=== PATIENT | female | born 1955 | race Caucasian/White ===

== ENCOUNTER 2022-11-14 11:37 | Outpatient (REF) | payer MEDICARE, SELFPAY ==
[2022-11-14 13:45] LABS: MANUAL DIFF FLAG NO
[2022-11-14 13:54] LABS: Basophils Percent Auto 0.5 % (0-2); Eosinophils Absolute Auto 0.1 X10*3/uL (0.0-0.4); Eosinophils Percent Auto 0.9 % (0-4); Hematocrit 43.5 % (37.0-47.0); Hemoglobin 14.3 g/dl (12.0-16.0); Imm Gran Abs Auto 0.02 X10*3/uL (0.00-0.03); Imm Gran Pct Auto 0.3 % (0.0-0.4); Lymphocytes Absolute Auto 1.7 X10*3/uL (1.2-4.9); Lymphocytes Percent Auto 26.9 % (20-40); Mean Corpuscular HGB Conc 32.9 g/dl (31.0-35.0); Mean Corpuscular Hemoglobin 29.2 pg (27.0-33.0); Mean Corpuscular Volume 88.8 fL (80.0-98.0); Monocytes Absolute Auto 0.5 X10*3/uL (0.1-1.2); Monocytes Percent Auto 8.4 % (2-11); Neutrophils Absolute Auto 4.1 x10*3/uL (2.0-8.3); Platelet Count 255 X10*3/uL (160-400); Red Cell Distribution Width 13.2 % (11.0-16.0); White Blood Count 6.5 X10*3/uL (4.8-10.8)
[2022-11-14 14:22] LABS: Alanine Aminotransferase 26 U/L (0-31); Albumin Level 4.6 g/dL (3.5-5.0); Alkaline Phosphatase 67 U/L (39-117); Anion Gap 14 (12-20); Aspartate Amino Transferase 24 U/L (5-31); Bilirubin Total 0.4 mg/dL (0.0-1.0); Blood Urea Nitrogen 19 mg/dL (9-16); Calcium 10.1 mg/dL (8.4-10.2); Carbon Dioxide 24 mmol/L (22-29); Chloride 107 mmol/L (96-108); Cholesterol 311 mg/dL; Estimated Glomerular Filt Rate > 60; Glucose Random 86 mg/dL (60-115); Sodium 141 mmol/L (135-145); Total Protein 6.9 g/dL (6.5-8.0)
[2022-11-14 14:40] LABS: Thyroid Stimulating Hormone 1.23 uIU/mL (0.32-4.0); Vitamin D 25-OH Total 17.3 ng/mL (>30)
== END 2022-11-14 11:38 | disposition home or self-care (01) ==
LOC: HO.10HDL 11:37
PROVIDERS: Visit Provider Internal Medicine
DX: Z00.00 Encounter for general adult medical examination without abnormal findings (principal)
CPT/HCPCS: 36415; 80053; 82306; 82465; 84443; 85025

== ENCOUNTER 2025-03-22 14:43 | Outpatient (AMB) | payer MEDICARE, SELFPAY ==
--- NOTE | 2025-03-22 14:13 | MHC.PC.OV ---
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 Required: No Accompanied by: Self / Same As Patient Allergies naproxen Allergy (Mild, Verified 03/22/25 14:15) Unknown Tobacco use date assessed: 03/22/25 Fall risk assessment: No Falls in past year Last assessed Fall Risk: 03/22/25 Dental Screening Dental Screen Date: 03/22/25 Did you have a dental visit in the last 12 months?: Yes Did you have a dental problem in the last 6 months where you did not have access to dental care?: No [facility] Medical History (Updated 03/22/25 @ 15:12 by Heath Campos MD) Chronic eczema of foot ADHD Family History (Updated 03/22/25 @ 14:51 by Janine Hancock MA) Mother No problems noted. Father No problems noted. Social History Housing: House Patient Tobacco Use Status: Former Tobacco user e-Cigarette/Vaping Use: Former Use service: No Current occupational status: retired Cognitive needs: No Hearing needs: No Vision needs: Yes (rx glasses) Questionnaire PHQ-9 Over the last 2 weeks, how often have you been bothered by any of the following problems? 1. Little interest or pleasure in doing things: not at all 2. Feeling down, depressed, or hopeless: not at all 3. Trouble falling or staying asleep, or sleeping too much: not at all 4. Feeling tired or having little energy: not at all 5. Poor appetite or overeating: not at all 6. Feeling bad about yourself - or that you are a failure or have let yourself or your family down: not at all 7. Trouble concentrating on things, such as reading the newspaper or watching television: not at all 8. Moving or speaking so slowly that other people could have noticed. Or the opposite - being so fidgety or restless that you have been moving around a lot more than usual: not at all 9. Thoughts that you would be better off or of hurting yourself in some way: not at all Total score: 0 Source: Developed by Drs. Darin Banegas, Shira Mitchell, Les Lovelace and colleagues, with an educational grover from [employer]. Thrive Questionnaire Date Thrive assessed: 03/22/25 I am a: Patient Within the past 12 months, did the food you bought not last and you didn't have the money to get more?: Never true Within the past 12 months, did you worry whether your food would run out before you got money to buy more?: Never true Do you have trouble paying for medicines?: No Do you have trouble getting transportation to medical appointments?: No Do you have trouble paying your heating and electricity bill?: No Do you have trouble taking care of your child, family member or friend?: No Do you have trouble with day-to-day activities such as bathing, preparing meals, shopping, managing finances, etc.?: No Are you currently unemployed and looking for a job?: No Are you interested in more education?: No THRIVE Score: 0 AUDIT C Alcohol Use Questionnaire (AUDIT-C) 1. How often do you have a drink containing alcohol?: Never 3. How often do you have six or more drinks on one occasion?: Never Total Score: 0 AZRA-7 AMB Questionnaire AZRA-7 Date AZRA - 7 assessed: 03/22/25 Feeling nervous, anxious, or on edge: 0 = Not at all Not being able to stop or control worryin = Not at all Worrying too much about different things: 0 = Not at all Trouble relaxin = Not at all Being so restless that it is hard to sit still: 0 = Not at all Becoming easily annoyed or irritable: 0 = Not at all Feeling afraid as if something awful might happen: 0 = Not at all Total AZRA-7 score (0-4 normal; 5-9 mild; 10-14 moderate; 15-21 severe): 0 Source: Developed by Drs. Darin Banegas, Les Dickerson and colleagues, with an educational grover from [employer]. Physical exam (Primary Care) Vital Signs: Last Vital Signs Temp 97.5 F 03/22/25 14:47 Pulse 88 03/22/25 14:47 BP 130/86 03/22/25 14:47 Pulse Ox 99 03/22/25 14:47 Oxygen Delivery Method Room Air 03/22/25 14:47 BMI result Body Mass Index 2.6 Tobacco/Smoking Status: Tobacco use Status Tobacco use date assessed 03/22/25 03/22/25 14:16 Patient Tobacco Use Status Former Tobacco user 03/22/25 14:51 e-Cigarette/Vaping Use Former Use 03/22/25 14:51 PHQ-9: PHQ-9 Score PHQ-9: Total score 0 03/22/25 14:51 Thrive Assessment: Date of Thrive Assessment Date Thrive assessed 03/22/25 03/22/25 14:51 Coding Level of Care Code New Pt Level 4 (22400) Complex EM visit Add On G2211 Diagnoses ADHD F90.9 Chronic eczema of foot L30.9 Assessment & Plan Assessment & Plan (1) ADHD: Code(s): F90.9 - Attention-deficit hyperactivity disorder, unspecified type Category: Medical Plan: Pt is apprehensive. Was not comfortable answering a few questions regarding her ability to do her ADL's. I am hesitant to continue prescribing the stimulants. Out patient psych has been requested. (2) Chronic eczema of foot: Code(s): L30.9 - Dermatitis, unspecified Category: Medical Plan: Condition appears chronic. Cannot tell the dermatology who she saw in the past. Dermatology consult requested. Plan History of Present Illness The patient is a 69-year-old female presenting with concerns regarding her chronic foot condition. She has had this condition for several years, and it has progressively worsened. The discomfort intensifies following prolonged exposure to water, such as during swimming, prompting the patient to cease this activity to avoid aggravation. The condition also causes significant sleep disturbances. Despite a lack of recent dermatological consultations, the patient expresses a strong interest in obtaining a referral to a gill box operator due to the worsening of her symptoms since her last consultation over ten years ago. The patient also reports a long-standing diagnosis of ADHD, for which she has been consistently medicated with amphetamine for approximately two decades. The medication has been effective in improving her ability to concentrate and engage in artistic activities. She has been in contact with various providers to manage her prescription, with Dr. Rivera being her most recent provider. Although the patient's ADHD treatment history is extensive, she has not had recent specialist evaluations. 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 - She lives alone. - The patient drives independently, including at night, without difficulty. Review of Systems - Musculoskeletal: Reports chronic foot discomfort exacerbated by prolonged exposure to water. - Neurological: Reports improved concentration with medication for ADHD; denies issues while driving or activities of daily living. - Sleep: Reports sleep disturbances related to chronic foot condition. Physical Exam General: Cooperative and healthy appearing Nutritional Appearance: Well nourished Orientation/consciousness: Patient oriented x3 Limitations: No limitations Head: Normal to inspection General: Appearance normal, both eyes and all related structures Neck: Normal visual inspection Chest: Normal palpation of entire chest wall Respiratory: No difficulty breathing, lungs are fine. ormal respiratory effort Neurology: Patient oriented x3, able to drive at night without issues, able to function and perform daily activities independently. Feet: Right : Thickened skin over the plantar surface with excoriation evans Results Plan 1. Chronic Foot Condition - Refer to a gill box operator for assessment and management. - Attempt to secure an appointment within the year. 2. Attention-Deficit/Hyperactivity Disorder Adhd - Continuation of current amphetamine therapy pending specialist confirmation. - Referral to a specialist for verification of prescription appropriateness. - Follow-up arranged post-specialist consultation. Discussion Notes During the visit, I discussed with the patient the necessity of addressing her chronic foot condition through a renewed referral to a gill box operator. Despite prior difficulties in obtaining timely appointments, I reassured her that I would assist in scheduling an expedited consultation. Regarding her ADHD management, the necessity of a specialist evaluation was emphasized to ensure the appropriateness of her current medication regimen. I explained my protocol for ADHD management, which involves periodic specialist reviews, before continuing long-term prescriptions. The patient was informed about the process of arranging this assessment and assured that it would not incur additional costs under her current insurance plan. For follow-up, I have scheduled a review in three months to assess the specialist's notes on her ADHD and make an informed decision regarding future prescriptions. The patient was made aware of these plans and the reasoning behind tightening medication oversight with the transition from her former provider, Dr. Rivera. Patient Instructions - Await referral letter for gill box operator appointment; I will expedite this. - Continue current ADHD medication regimen until specialist consultation can be arranged. - Undergo blood work as recommended. - Follow up in three months to review ADHD management. - Contact the clinic if symptoms worsen or if there are difficulties emission specialist visits. Orders: Orders Lipid Panel Today F90.9 - Attention-deficit hyperactivity disorder, unspecified type, L30.9 - Dermatitis, unspecified Liver Panel Today F90.9 - Attention-deficit hyperactivity disorder, unspecified type, L30.9 - Dermatitis, unspecified Thyroid Stimulating Hormone Today F90.9 - Attention-deficit hyperactivity disorder, unspecified type, L30.9 - Dermatitis, unspecified UA and rflx microscopic Today F90.9 - Attention-deficit hyperactivity disorder, unspecified type, L30.9 - Dermatitis, unspecified Basic Metabolic Panel Today F90.9 - Attention-deficit hyperactivity disorder, unspecified type, L30.9 - Dermatitis, unspecified Complete Blood Count no Diff Today F90.9 - Attention-deficit hyperactivity disorder, unspecified type, L30.9 - Dermatitis, unspecified Referrals Dermatology Referral F90.9 - Attention-deficit hyperactivity disorder, unspecified type, L30.9 - Dermatitis, unspecified Psychiatry Outpatient Consultation Service F90.9 - Attention-deficit hyperactivity disorder, unspecified type
[2025-03-22 14:47] VITALS: BP 130/86; PULSE 88; TEMP 36.4; O2SAT 99
== END 2025-03-22 15:17 | disposition home or self-care (01) ==
LOC: HO.HMCHD 14:44
PROVIDERS: PCP Internal Medicine; Visit Provider Internal Medicine
DX: F90.9 Attention-deficit hyperactivity disorder, unspecified type (principal); L30.9 Dermatitis, unspecified

== ENCOUNTER → 2025-03-22 14:43 | Outpatient (BNVA) | payer MEDICARE, SELFPAY | PROVIDERS: PCP Internal Medicine; Visit Provider Internal Medicine | DX: M79.671 Pain in right foot (principal); F90.9 Attention-deficit hyperactivity disorder, unspecified type; L30.9 Dermatitis, unspecified; Z79.899 Other long term (current) drug therapy | CPT/HCPCS: 96127; 99202 ==

== ENCOUNTER 2025-04-14 07:56 | Outpatient (REF) | payer MEDICARE, SELFPAY ==
[2025-04-14 08:22] LABS: Appearance Urine Hazy; Color Urine Yellow; Glucose Urine UA Negative (Negative); Leukocyte Esterase Urine Moderate (2+) (Negative); Nitrite Urine Negative (Negative); Specific Gravity - Urine >= 1.030 (1.005-1.025); UMIC TRIGGER UA YES; Urine Blood Negative (Negative); Urine Ketones Negative (Negative); Urine Protein Negative (Neg-Trace)
[2025-04-14 08:32] LABS: Hematocrit 41.2 % (37.0-47.0); Hemoglobin 14.1 g/dl (12.0-16.0); Mean Corpuscular HGB Conc 34.2 g/dl (31.0-35.0); Mean Corpuscular Hemoglobin 30.8 pg (27.0-33.0); Mean Platelet Volume 9.6 fL (9.4-12.3); Platelet Count 229 X10*3/uL (160-400); Red Blood Count 4.58 X10*6/uL (4.20-5.50); Red Cell Distribution Width 14.6 % (11.0-16.0)
[2025-04-14 08:38] LABS: Bacteria Urine 4+ (None Seen); Hyaline Casts Urine 0-2 /LPF (0-2); RBC Urine 0-2 /HPF (0-2); Squamous Epithelial Cell Urine >20 /HPF (0-2); WBC Urine >50 /HPF (0-5)
[2025-04-14 09:16] LABS: Alanine Aminotransferase 28 U/L (0-31); Albumin Level 4.5 g/dL (3.5-5.0); Alkaline Phosphatase 69 U/L (39-117); Anion Gap 13 (12-20); Aspartate Amino Transferase 30 U/L (5-31); Bilirubin Direct 0.1 mg/dL (0.0-0.5); Bilirubin Total 0.3 mg/dL (0.0-1.0); Blood Urea Nitrogen 15 mg/dL (9-16); Carbon Dioxide 26 mmol/L (22-29); Chloride 110 mmol/L (96-108); Cholesterol 311 mg/dL (<200); Estimated Glomerular Filt Rate > 60; Glucose Random 77 mg/dL (60-115); HDL Cholesterol 79 mg/dL (>40); LDL Cholesterol Calculated 186 mg/dL (<100); Potassium 4.3 mmol/L (3.3-5.1); Sodium 145 mmol/L (135-145); Triglycerides 234 mg/dL (<150)
[2025-04-14 09:32] LABS: Thyroid Stimulating Hormone 1.22 uIU/mL (0.32-4.0)
== END 2025-04-14 07:57 | disposition home or self-care (01) ==
LOC: HO.LAB 07:56
PROVIDERS: PCP Internal Medicine; Visit Provider Internal Medicine
DX: F90.9 Attention-deficit hyperactivity disorder, unspecified type (principal); L30.9 Dermatitis, unspecified
CPT/HCPCS: 36415; 80048; 80061; 80076; 81001; 84443; 85027

== ENCOUNTER 2025-04-17 14:01 | Outpatient (AMB) | payer MEDICARE, SELFPAY ==
[2025-04-17 14:18] VITALS: PULSE 103; TEMP 36.2; O2SAT 97; BMI 26.0
--- NOTE | 2025-04-17 14:18 | A.OFFPC_ITS ---
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 Father No problems noted. Social History Housing: House Patient Tobacco Use Status: Former Tobacco user e-Cigarette/Vaping Use: Former Use service: No Current occupational status: retired Cognitive needs: No Hearing needs: No Vision needs: Yes (rx glasses) Questionnaire PHQ-9 Over the last 2 weeks, how often have you been bothered by any of the following problems? 1. Little interest or pleasure in doing things: not at all 2. Feeling down, depressed, or hopeless: nearly every day 3. Trouble falling or staying asleep, or sleeping too much: not at all 4. Feeling tired or having little energy: not at all 5. Poor appetite or overeating: not at all 6. Feeling bad about yourself - or that you are a failure or have let yourself or your family down: not at all 7. Trouble concentrating on things, such as reading the newspaper or watching television: not at all 8. Moving or speaking so slowly that other people could have noticed. Or the opposite - being so fidgety or restless that you have been moving around a lot more than usual: not at all 9. Thoughts that you would be better off or of hurting yourself in some way: not at all Total score: 3 Source: Developed by Drs. Darin Banegas, Shira Mitchell, Les Lovelace and colleagues, with an educational grover from [employer]. Thrive Questionnaire Date Thrive assessed: 03/22/25 I am a: Patient Within the past 12 months, did the food you bought not last and you didn't have the money to get more?: Never true Within the past 12 months, did you worry whether your food would run out before you got money to buy more?: Never true Do you have trouble paying for medicines?: No Do you have trouble getting transportation to medical appointments?: No Do you have trouble paying your heating and electricity bill?: No Do you have trouble taking care of your child, family member or friend?: No Do you have trouble with day-to-day activities such as bathing, preparing meals, shopping, managing finances, etc.?: No Are you currently unemployed and looking for a job?: No Are you interested in more education?: No THRIVE Score: 0 AUDIT C Alcohol Use Questionnaire (AUDIT-C) 1. How often do you have a drink containing alcohol?: Never 3. How often do you have six or more drinks on one occasion?: Never Total Score: 0 AZRA-7 AMB Questionnaire AZRA-7 Date AZRA - 7 assessed: 04/17/25 Feeling nervous, anxious, or on edge: 3 = Nearly every day Not being able to stop or control worryin = Not at all Worrying too much about different things: 0 = Not at all Trouble relaxin = Not at all Source: Developed by Drs. Darin Banegas, Shira Mitchell, Les Lovelace and colleagues, with an educational grover from [employer]. Physical exam (Primary Care) Vital Signs: Last Vital Signs Temp 97.2 F 04/17/25 14:18 Pulse 103 H 04/17/25 14:18 Pulse Ox 97 04/17/25 14:18 Oxygen Delivery Method Room Air 04/17/25 14:18 BMI result Body Mass Index 26.0 Tobacco/Smoking Status: Tobacco use Status Tobacco use date assessed 04/17/25 04/17/25 14:23 Patient Tobacco Use Status Former Tobacco user 04/17/25 14:23 e-Cigarette/Vaping Use Former Use 04/17/25 14:23 PHQ-9: PHQ-9 Score PHQ-9: Total score 3 04/17/25 14:46 Thrive Assessment: Date of Thrive Assessment Date Thrive assessed 03/22/25 04/17/25 14:23 Coding Level of Care Code Est Pt Level 3 (06120) Complex EM visit Add On G2211 Diagnoses ADHD F90.9 Assessment & Plan Assessment & Plan (1) ADHD: Code(s): F90.9 - Attention-deficit hyperactivity disorder, unspecified type Category: Medical Plan: Difficult conversation with patient. She was upset that there was miscommunication regarding her labs, psych evaluation. This was discussed in the last OV. I apologized. Her BW shows elevated chol, she has no interest in taking statins. Informed her that Psyc has been called again for an early appt. Her adderal dosage has been reduced to twice a day. She also wanted a dermatology appt for the lesion on the plantar surface of her feet. I offered her steroid creams and she declined. Apart from examining the feet visually, no PE was done
== END 2025-04-17 15:26 | disposition home or self-care (01) ==
LOC: HO.HMCHD 14:01
PROVIDERS: PCP Internal Medicine; Visit Provider Internal Medicine
DX: F90.9 Attention-deficit hyperactivity disorder, unspecified type (principal)

== ENCOUNTER → 2025-04-17 14:01 | Outpatient (BNVA) | payer MEDICARE, SELFPAY | PROVIDERS: PCP Internal Medicine; Visit Provider Internal Medicine | DX: F90.9 Attention-deficit hyperactivity disorder, unspecified type (principal); Z13.30 Encounter for screening examination for mental health and behavioral disorders, unspecified | CPT/HCPCS: 96127; 99212 ==

== ENCOUNTER 2025-04-27 15:17 | Outpatient (AMB) | payer MEDICARE, SELFPAY ==
--- NOTE | 2025-04-27 14:51 | A.OFFPSYCH_ITS ---
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 Pt arrived at the office and was irritable and guarded. She refused to fill out a PHQ9 or GAD7 papaerwork and its not clear why- may be due to high stress she felt coming here, her eye sight hand pain, or ADHD or all of the above. 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 She has struggled since then. 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 She also has macular degeneration and feels her eye health is worsening which is very stressful for patient. She reports psoriasis on her feet and it hurts every day. The pain can sometimes keep her awake. She reports a long history of ADHD and unable to function well without adderall. She reports she sleeps 8 hours but often has worry/anxiety dreams. She was diagnosed with ADHD 20 years ago and has been on adderall 10mg TID for most of those 20 years with good effect. Past Psychiatric History: No IPLOC. no hx of self harm. Has had bouts of depression in past but hs tried antidepressants and made her feel worse; she reports she always felt they were toxic. Subjective Subjective Subjective Medication Compliance: Yes Side effects from medications: No Review of Systems Medical Review of Systems: unchanged Mental Status Exam Mental Status Exam Patient Appearance: Appropriate Patient Orientation: Person, Place, Time and Situation Level of Consciousness: Awake and Alert Patient Behavior: Guarded, Cooperative, Restless, Anxious, Good Eye Contact and Uncooperative (initially irritable ) Behavior Comments: high level of hypearousal initially- less so over course of appt Mood Description: Anxious, Angry, Nervous and Apprehensive Affect Description: Anxious, Nervous and Apprehensive Patient Cognition Impaired: No Ability to Follow Directions: Good Speech Pattern: Clear Memory Description: Intact Hallucinations: None Delusions: Not Present Thought Process: Intact, Rumination and Goal Oriented Thought Content: positive for Intact and positive for Goal Oriented Judgement: Good Assessment and Plan Assessment & Plan (1) ADHD: Status: Acute Qualifiers: Attention deficit-hyperactivity disorder type: combined inattentive- hyperactive Qualified Code(s): F90.2 - Attention-deficit hyperactivity disorder, combined type Code(s): F90.9 - Attention-deficit hyperactivity disorder, unspecified type (2) Vitamin D deficiency: Status: Acute Code(s): E55.9 - Vitamin D deficiency, unspecified (3) Dupuytren's contracture of right hand: Status: Acute Code(s): M72.0 - Palmar fascial fibromatosis [Dupuytren] Plan labs ordereed ekg ordered adderall 10 mg TID Medications: Changed From dextroamphetamine-amphetamine 10 mg (Adderall) administer doses at least 4-6 hours apart 10 mg PO BID 60 tabs 0RF To dextroamphetamine-amphetamine 10 mg (Adderall) administer doses at least 4-6 hours apart 10 mg PO TID 90 tabs 0RF Orders: Orders Vitamin D 25-OH Total 04/27/25 E55.9 - Vitamin D deficiency, unspecified Ferritin 04/27/25 F90.9 - Attention-deficit hyperactivity disorder, unspecified type IRON PROFILE 04/27/25 F90.9 - Attention-deficit hyperactivity disorder, unspecified type Transferrin 04/27/25 F90.9 - Attention-deficit hyperactivity disorder, unspecified type ECG 12 lead EKG 04/27/25 F90.9 - Attention-deficit hyperactivity disorder, unspecified type Counseling and coordination of Care Pt. Self Management counseling: Maintenance-social rhythm, Mod caffeine/ETOH intake, Nutrition education and improvement and Problem solving Medication management counseling: Effectiveness, Side effects, Dosing range, Duration, Drug interaction and Adherence Diagnosis and Prognosis Counseling: Accuracy of diagnosis, Prognosis over time, Impact of diagnosis on life functions and Adequacy of current interventions Details: I spent 75 minutes reviewing the record, seeing the patient and documenting in the medical record. Counseling provided to the patient/caregiver as outlined below. Addressed patient/caregiver concerns regarding current medication regime including effective adherence. Addressed patient/caregiver concerns regarding diagnosis and prognosis including accuracy of diagnosis, prognosis over time, impact of diagnosis. Addressed patient/caregiver concerns regarding impact of recent stressors. [facility] Medical History (Updated 05/01/25 @ 12:37 by Pebbles Weathers APRN) Chronic eczema of foot ADHD Family History Mother No problems noted. Father No problems noted. Social History Housing: House Patient Tobacco Use Status: Former Tobacco user e-Cigarette/Vaping Use: Former Use service: No Current occupational status: retired Cognitive needs: No Hearing needs: No Vision needs: Yes (rx glasses) Social History: lives alone in [facility]. 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 She grew up in [place] lived with both parents and no siblings; she left [place] to go to college in [facility] [place]. 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 She is on a fixed income and that is stressful. She has friends from [place] that she has a zoom meeting with weekly- supportive Gaby. She has 1 neighbor she is friendly with. Substance History: no tobacco no THC Trauma History: pandemic isolation, loss of job and ability to play instrument Coding Level of Care Code Psych Diag Eval w/Med (24850) Diagnoses Attention deficit hyperactivity disorder (ADHD), combined type F90.2 Attention deficit-hyperactivity disorder type: combined inattentive- hyperactive Vitamin D deficiency E55.9 Dupuytren's contracture of right hand M72.0
== END 2025-04-27 15:18 | disposition home or self-care (01) ==
LOC: HO.HOP 15:17
PROVIDERS: PCP Internal Medicine; Visit Provider Clinical Nurse Specialist Psychiatric/Mental Health
DX: F90.2 Attention-deficit hyperactivity disorder, combined type (principal); E55.9 Vitamin D deficiency, unspecified; M72.0 Palmar fascial fibromatosis [Dupuytren]
CPT/HCPCS: 90792

== ENCOUNTER → 2025-04-27 15:17 | Outpatient (BNVA) | payer MEDICARE, SELFPAY | PROVIDERS: PCP Internal Medicine; Visit Provider Clinical Nurse Specialist Psychiatric/Mental Health | DX: F90.9 Attention-deficit hyperactivity disorder, unspecified type (principal); F90.2 Attention-deficit hyperactivity disorder, combined type; M72.0 Palmar fascial fibromatosis [Dupuytren]; E55.9 Vitamin D deficiency, unspecified | CPT/HCPCS: 90792 ==

== ENCOUNTER 2025-08-07 15:26 | Outpatient (AMB) | payer MEDICARE, SELFPAY ==
[2025-08-07 15:07] VITALS: BP 160/90; PULSE 88; TEMP 36.3; O2SAT 97; BMI 25.6
--- NOTE | 2025-08-07 15:07 | MHC.PC.OV ---
Vital Signs 08/07/25 15:07 Height 5 ft 2 in Weight 140 lb BMI 25.6 BP 160/90 H Blood Pressure Location Rt brachial Position Sitting Pulse 88 Pulse Source Pulse Oximeter Temp 97.4 F Temp Source Temporal Artery Scan Pulse Oximetry (%) 97 Oxygen Delivery Method Room Air Intake Visit Reasons: ADHD Strategic Marketing Specialist Required: No Accompanied by: Self / Same As Patient Allergies naproxen Allergy (Mild, Verified 08/07/25 15:07) Unknown Medication List - Last Reconciled 08/16/25 by SHERYL Ibrahim dextroamphetamine-amphetamine 10 mg (Adderall) 10 mg PO TID Tobacco use date assessed: 08/07/25 Fall risk assessment: No Falls in past year Last assessed Fall Risk: 08/07/25 Dental Screening Dental Screen Date: 08/07/25 Did you have a dental visit in the last 12 months?: Yes Did you have a dental problem in the last 6 months where you did not have access to dental care?: No HPI HPI Comments History of Present Illness Details The patient is a 70-year-old female with ADHD, anxiety and Dupuytrens Contracture of both hands presenting with prescription management issues and hand contractures. She has been on Adderall for ADHD long-term that was not renewed by her previous physician. She moved here from 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 She was seen by Dr. Campos in April and was referred to Psychiatry. The psychiatrist renewed her adderall temporarily. No follow up was recommended. She was advised to return to her primary care provider for further prescriptions, leading to a lapse in medication for over a week, which has been challenging for her. She declines to be referred for counseling. She does not want to return to the Psychiatrist. The patient also reports a history of Dupuytren's contracture worst in her right hand. In [facility], she underwent two rounds of radiation therapy, resulting in some improvement. She expresses frustration with hand surgeons' lack of awareness regarding radiation treatment for Dupuytren's and is hesitant to pursue further surgical consultations. Additionally, the patient experiences arthritis in her hands, which is quite painful and has not been recently evaluated with imaging. She has not engaged in physical therapy for her hands and is uncertain about further radiation treatment. Her blood pressure was noted to be elevated during the visit, which she attributes to stress, although she denies any recent episodes of chest pain or dyspnea. She has not taken medication for HTN. She had labs in April which did show elevated cholesterol. She declines to take Statins. She declines to do any screenings and states if she cancers she will just . [facility] Medical History (Updated 08/16/25 @ 13:33 by SHERYL Ibrahim) ADHD Anxiety Bilateral hand pain Chronic eczema of foot Elevated BP reading w/ no diagnosis of HTN Family History (Updated 08/07/25 @ 15:39 by Janine Hancock MA) Mother No problems noted. Father No problems noted. Social History Housing: House Patient Tobacco Use Status: Former Tobacco user e-Cigarette/Vaping Use: Former Use service: No Current occupational status: retired Cognitive needs: No Hearing needs: No Vision needs: Yes (rx glasses) Questionnaire PHQ-9 Over the last 2 weeks, how often have you been bothered by any of the following problems? 1. Little interest or pleasure in doing things: not at all 2. Feeling down, depressed, or hopeless: not at all 3. Trouble falling or staying asleep, or sleeping too much: not at all 4. Feeling tired or having little energy: not at all 5. Poor appetite or overeating: not at all 6. Feeling bad about yourself - or that you are a failure or have let yourself or your family down: not at all 7. Trouble concentrating on things, such as reading the newspaper or watching television: not at all 8. Moving or speaking so slowly that other people could have noticed. Or the opposite - being so fidgety or restless that you have been moving around a lot more than usual: not at all 9. Thoughts that you would be better off or of hurting yourself in some way: not at all Total score: 0 Depression Screening Interpretation: Negative Depression Screening Done: Yes Source: Developed by Drs. Darin Banegas, Shira Mitchell, Les Lovelace and colleagues, with an educational grover from [employer] Thrive Questionnaire Date Thrive assessed: 08/07/25 I am a: Patient Within the past 12 months, did the food you bought not last and you didn't have the money to get more?: Never true Within the past 12 months, did you worry whether your food would run out before you got money to buy more?: Never true Do you have trouble paying for medicines?: No Do you have trouble getting transportation to medical appointments?: No Do you have trouble paying your heating and electricity bill?: No Do you have trouble taking care of your child, family member or friend?: No Do you have trouble with day-to-day activities such as bathing, preparing meals, shopping, managing finances, etc.?: No Are you currently unemployed and looking for a job?: No Are you interested in more education?: No THRIVE Score: 0 AUDIT C Alcohol Use Questionnaire (AUDIT-C) 1. How often do you have a drink containing alcohol?: Never 3. How often do you have six or more drinks on one occasion?: Never Total Score: 0 AZRA-7 AMB Questionnaire AZRA-7 Date AZRA - 7 assessed: 08/07/25 Feeling nervous, anxious, or on edge: 0 = Not at all Not being able to stop or control worryin = Not at all Worrying too much about different things: 0 = Not at all Trouble relaxin = Not at all Being so restless that it is hard to sit still: 0 = Not at all Becoming easily annoyed or irritable: 0 = Not at all Feeling afraid as if something awful might happen: 0 = Not at all Total AZRA-7 score (0-4 normal; 5-9 mild; 10-14 moderate; 15-21 severe): 0 Source: Developed by Drs. Darin Banegas, Shira Mitchell, Les Lovelace and colleagues, with an educational grover from [employer] Review of Systems Const Details: CONSTITUTIONAL Negative HEAD/NECK Negative EAR/NOSE/MOUTH/THROAT Negative RESPIRATORY Negative CARDIOVASCULAR Reports elevated blood pressure, denies chest pain or dyspnea GASTROINTESTINAL Negative MUSCULOSKELETAL Bilateral hand pain NEUROLOGICAL Negative PSYCHIATRIC ADHD Anxiety Physical exam (Primary Care) Vital Signs: Last Vital Signs Temp 97.4 F 08/07/25 15:07 Pulse 88 08/07/25 15:07 BP 160/90 H 08/07/25 15:07 Pulse Ox 97 08/07/25 15:07 Oxygen Delivery Method Room Air 08/07/25 15:07 BMI result Body Mass Index 25.6 GENERAL Well developed, Well nourished, in no apparent distress HEENT Head-Normocephalic Eyes- PERRLA, EOMI, Conjuctiva clear, lids WNL Ears- Canals clear, TMs WNL Mouth/Throat-No lesions, no erythema, no exudate Neck- Supple, No lymphadenopathy, thyroid WNL RESPIRATORY Normal I:E, Clear to auscultation CARDIOVASCULAR Regular, rate and rhythm, No murmurs or rubs GASTROINTESTINAL Soft, nontender, normal bowel sounds, no masses MUSCULOSKELETAL Back- nontender Joints- bilateral hand promise NEUROLOGICAL Gait normal PSYCHIATRIC Oriented to person, place and time Mood and affect patient very anxious Appearance WNL Speech WNL Thought processes WNL Tobacco/Smoking Status: Tobacco use Status Tobacco use date assessed 08/07/25 08/07/25 15:08 Patient Tobacco Use Status Former Tobacco user 08/07/25 15:08 e-Cigarette/Vaping Use Former Use 08/07/25 15:08 PHQ-9: PHQ-9 Score PHQ-9: Total score 0 08/15/25 16:40 Depression Screening Interpretation: Negative Thrive Assessment: Date of Thrive Assessment Date Thrive assessed 08/07/25 08/07/25 15:08 Coding Level of Care Code Established Pt Tele New Pt Level 4 (72172) Patient Type Established Diagnoses Attention deficit hyperactivity disorder (ADHD), combined type F90.2 Attention deficit-hyperactivity disorder type: combined inattentive-hyperactive Anxiety F41.9 Bilateral hand pain M79.641; M79.642 Dupuytren's contracture of right hand M72.0 Elevated BP reading w/ no diagnosis of HTN R03.0 Time Spent (min) 30 Comment Time spent on chart review, medication reconciliation, H&P, patient education and orders Assessment & Plan Assessment & Plan (1) ADHD: Code(s): F90.9 - Attention-deficit hyperactivity disorder, unspecified type Category: Medical Qualifiers: Attention deficit-hyperactivity disorder type: combined inattentive-hyperactive Qualified Code(s): F90.2 - Attention-deficit hyperactivity disorder, combined type Plan: Patient declines to back to psychiatry. Will refill Adderall for now. Patient to follow up in 6 weeks or sooner if symptoms persist or worsen. (2) Anxiety: Code(s): F41.9 - Anxiety disorder, unspecified Category: Medical Plan: Patient declines referral for counseling or Psychiatry. Will monitor. Patient to follow up in 6 weeks or sooner if symptoms persist or worsen. (3) Bilateral hand pain: Code(s): M79.641 - Pain in right hand; M79.642 - Pain in left hand Category: Medical Plan: The patient reports painful arthritis in her hands. X-rays are recommended to evaluate the severity, and further management will be based on the findings. Physical therapy may be considered as a treatment option. Patient to follow up in 6 weeks or sooner if symptoms persist or worsen. (4) Dupuytren's contracture of right hand: Code(s): M72.0 - Palmar fascial fibromatosis [Dupuytren] Category: Medical Plan: The patient has a history of Dupuytren's contracture treated with radiation therapy in the past. Further evaluation by a hand specialist is recommended to assess current status and explore treatment options, including physical therapy. Will see if MD who does radiation treatment can be located. (5) Elevated BP reading w/ no diagnosis of HTN: Comment: BP today was 165/90 Code(s): R03.0 - Elevated blood-pressure reading, without diagnosis of hypertension Category: Medical Plan: The patient's blood pressure was noted to be elevated during the visit, likely due to stress. It is recommended to monitor blood pressure regularly and follow up in four to six weeks to reassess and manage as needed. Explained we will need to address if continues. Plan During the visit, we discussed the patient's elevated blood pressure, likely due to stress, and the need for regular monitoring. We also addressed her concerns about Dupuytren's contracture and arthritis, recommending further evaluation and imaging. The importance of completing blood work and x-rays was emphasized, and follow-up was scheduled to reassess her condition. 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 - Complete blood work and x-rays as recommended before leaving the hospital. - Follow up in four to six weeks for reassessment. - individual small group instructor prescription from [facility] after one hour.
--- OUTSIDE RECORDS SUMMARY | 2025-08-07 17:26 | XMS_ITS | Clinical Summary ---
Author Organization [facility] Address [address] [place] [phone] Phone Care Team Providers Care Cattle And Wheat Farmer Name Role Phone Pcp, Unknown Primary Care Provider Unavailabl e Allergies Active Allergy Reactions Criticality Noted Date Comments Naproxen Hives 04/21/2025 Medications dextroamphetamin e-amphetamine (ADDERALL) 10 mg Tab tablet Take 10 mg by mouth 2 (two) times a day. 04/17/2025 Active cefpodoxime (VANTIN) 200 MG tablet Take 1 tablet (200 mg total) by mouth 2 (two) times a day. 14 tablet 04/22/2025 Active Encounters Date Type Department Care Team Description 05/29/2025 3:33 PM EDT - 05/29/2025 7:58 PM EDT Emergency [facility] [address] [place] [address] Discharge Disposition: Left Without Being Seen from Last 3 Months Social History Tobacco Use Types Packs/Day Years Used Date Smoking Tobacco: Never Assessed Education Answer Date Recorded Are you interested in more education? Not on gildardo e 03/31/2024 Are you concerned about learning? Not on file 03/31/2024 No 03/31/2024 No 03/31/2024 Digital Access Answer Date Recorded No 03/31/2024 No 03/31/2024 Reliable internet access at home? Not on file 03/31/2024 Device with a working camera? Not on file Intimate Partner Violence Answer Date R ecorded Are you denied basic needs s uch as food, clothing, or medical care? No 05/29/2025 In the past 12 months have y ou been in a relationship with a person who hurts, threatens, or tries to control you? No 05/29/2025 Are you denied basic needs s uch as food, clothing, or medical care? No 05/29/2025 In the past 12 months have y ou been in a relationship with a person who hurts, threatens, or tries to control you? No 05/29/2025 Comments Unknown Sex and Gender Information Value Date Recorded Sex Assigned at Female 05/29/2025 4:08 PM EDT Legal Sex Female 7:21 PM EST Gender Identity Female 05/29/2025 4:08 PM EDT Sexual Orientation Not on file Last Filed Vital Signs Vital Sign Reading Time Taken Comments Blood Pressure 160/101 05/29/2025 5:51 PM EDT Pulse 77 05/29/2025 5:51 PM EDT Temperature 36.2 C (97.2 F) 05/29/2025 5:51 PM EDT Respiratory Rate 16 05/29/2025 5:51 PM EDT Oxygen Saturation 99% 05/29/2025 5:51 PM EDT Inhaled Oxygen Concentration - - Weight 61.7 kg (136 lb) 05/29/2025 4:05 PM EDT Height 160 cm (5' 3 ) 05/29/2025 4:05 PM EDT Body Mass Index 24.09 05/29/2025 4:05 PM EDT Plan of Treatment Health Maintenance Due Date Last Done Comments Adult Td,Tdap Booster 1955 LIPID PANEL 1955 DEPRESSION SCREENING 1967 SMOKING Hx and SMOKELESS TOB ACCO SCREENING 1968 HEPATITIS C SCREENING 1973 MAMMOGRAM 1995 COLOGUARD 2000 COLONOSCOPY 2000 COLORECTAL CANCER SCREENING 2000 FIT TEST 2000 FOBT 2000 SIGMOIDOSCOPY 2000 VIRTUAL COLONOSCOPY 2000 PNEUMOCOCCAL VACCINES (50+ y ears) (1 of 1 - PCV) 2005 ZOSTER VACCINES (1 of 2) 2005 OSTEOPOROSIS SCREENING INITI AL (ONE-TIME) 2020 INFLUENZA VACCINE (#1) 2025 COVID-19 VACCINE (1 - 2023-2 5 season) 2025 RSV VACCINE (1 - 1-dose 75+ series) 2030 HEPATITIS A VACCINES Aged Out No long er eligible based on patient's age to complete this topic HIB VACCINES Aged Out No longer eligi ble based on patient's age to complete this topic MENINGOCOCCAL VACCINES (ACWY) Aged Out No longer eligible based on patient's age to complete this topic MENINGOCOCCAL VACCINES (B) Aged Out N o longer eligible based on patient's age to complete this topic Medical Devices Not on file Insurance MEDICARE PPO BLUE REPLACEMENT MEDICARE PPO BLUE REPLACEMENT MEDICARE PPO BLUE REPLACEMENT MEDICARE PPO BLUE REPLACEMENT MEDICARE PPO BLUE REPLACEMENT MEDICARE PPO BLUE REPLAC[place] P[place] BLUE REPLACEMENT Care Teams Cattle And Wheat Farmer Relationship Specialty Start Date End Date Pcp, Unknown PCP - General 04/21/25 Additional Source Comments The information contained in this document represents components of the legal health record. It is not the complete legal health record.[facility]
--- OUTSIDE RECORDS SUMMARY | 2025-08-07 17:26 | XMS_ITS | Encounter Summary ---
Author Organization [facility] Address [address] [facility] [address] [place] [id number] Phone Care Team Providers Care Zyglo Inspector Name Role Phone Pcp, Unknown Primary Care Provider Unavailabl e Encounter Details Date Type Department Care Team (Late st Contact Info) Description 04/21/2025 Procedure [facility] [address] [place] [address] Social History Tobacco Use Types Packs/Day Years [...] as food, clothing, or medical care? No 04/21/2025 In the past 12 months have y ou been in a relationship with a person who hurts, threatens, or tries to control you? No 04/21/2025 Are you denied basic needs s uch as food, clothing, or medical care? No 04/21/2025 In the past 12 months have y ou been in a relationship with a person who hurts, threatens, or tries to control you? No 04/21/2025 Comments Unknown Sex and Gender Information Value Date Recorded Sex Assigned at Female 05/29/2025 4:08 PM EDT Legal Sex Female 7:21 PM EST Gender Identity Female 05/29/2025 4:08 PM EDT Sexual Orientation Not on file documented as of this encounter Functional Status * Calculated C-SSRS Risk Score (Lifetime/Recent) Answer Date of Assessment Author No Risk Indicated 04/21/2025 8:31 PM EDT Mile Segura RN * [place] Suicide Severity Rating Scale (Screener/Recent Self-Report) Question Answer Date of Assessment Author 1. Wish to be (Past 1 Month) No 025 8:31 PM EDT Mile Melissa RN 2. Non-Specific Active Suici jaymie Thoughts (Past 1 Month) No 04/21/2025 8:31 PM EDT Noelle Melissa ra, RN 6. Suicidal Behavior (Lifetime) No 8:31 PM EDT Mile Melissa RN documented as of this encounter Plan of Treatment Not on file documented as of this encounter Visit Diagnoses Not on filedocumented in this encounter Care Teams Zyglo Inspector Relationship Specialty Start Date End Date Pcp, Unknown PCP - General 04/21/25 documented as of this encounter Additional Source Comments The information contained in this document represents components of the legal health record. It is not the complete legal health record.[facility]
== END 2025-08-07 17:01 | disposition home or self-care (01) ==
LOC: HO.HMCHD 15:27
PROVIDERS: PCP Internal Medicine; Visit Provider Physician Assistant Medical
DX: M79.641 Pain in right hand (principal); F90.2 Attention-deficit hyperactivity disorder, combined type; F41.9 Anxiety disorder, unspecified; M79.642 Pain in left hand; M72.0 Palmar fascial fibromatosis [Dupuytren]; R03.0 Elevated blood-pressure reading, without diagnosis of hypertension

== ENCOUNTER → 2025-08-07 15:26 | Outpatient (BNVA) | payer MEDICARE, SELFPAY | PROVIDERS: PCP Internal Medicine; Visit Provider Physician Assistant Medical | DX: F90.2 Attention-deficit hyperactivity disorder, combined type (principal); F41.9 Anxiety disorder, unspecified; M79.641 Pain in right hand; M79.642 Pain in left hand; M72.0 Palmar fascial fibromatosis [Dupuytren]; R03.0 Elevated blood-pressure reading, without diagnosis of hypertension | CPT/HCPCS: 99212 ==

== ENCOUNTER 2025-08-22 14:53 | Outpatient (REF) | payer MEDICARE, SELFPAY ==
--- NOTE | ~2025-08-22 | XR_ITS ---
Exam: XR HAND 3 VIEWS BILATERAL, bilateral hand x-rays TECHNIQUE: AP, lateral, and oblique views upper extremity, bilateral hands INDICATION: M79.641 - Pain in right hand COMPARISON: None available. FINDINGS: RIGHT HAND: There is osteopenia. There is peav-ow-[id number] narrowing of the DIP joints with marginal osteophyte. There is mild narrowing of PIP joints with small marginal osteophytes. There is mild narrowing of the IP joint of thumb with marginal osteophytes. There is narrowing with sclerosis and osteophytes the first carpal metacarpal joint. LEFT HAND: There is osteopenia. There is moderate narrowing of the DIP joint spaces with small marginal spurs. There is mild narrowing of the PIP joint spaces with minute osteophytes. There is minimal narrowing of the IP joint of thumb with marginal osteophyte. There is mild narrowing and marginal osteophyte involving the first CMC joint. 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 Left hand: Moderate osteoarthritis of the hand and minimal first CMC joint osteoarthritis. Electronically signed by: Zoran Stockton MD 08/22/2025 05:21 PM EDT
--- NOTE | 2025-08-22 14:59 | ECG_ITS ---
Test Reason : adhd Blood Pressure : */* mmHG Vent. Rate : 73 BPM Atrial Rate : 73 BPM P-R Int : 136 ms QRS Dur : 90 ms QT Int : 368 ms P-R-T Axes : 56 11 254 degrees QTcB Int : 405 ms Normal sinus rhythm Left ventricular hypertrophy with repolarization abnormality ( David product ) Abnormal ECG No previous ECGs available Referred By: Pebbles Weathers Electronically Signed By: Evelio Spencer
[2025-08-22 16:29] LABS: Iron 43 mcg/dL (30-160); Percent Iron Saturation 12 % (15-50); Total Iron Binding Capacity 357 mcg/dL (228-428); Unsaturated Iron Binding 314 ug/dL
[2025-08-22 16:46] LABS: Ferritin 93 ng/mL (10-250)
--- OUTSIDE RECORDS SUMMARY | 2025-08-22 17:49 | XMS_ITS | Clinical Summary ---
Author Organization [facility] Address [address] [facility] [facility] [address] [place] [phone] Phone Care Team Providers Care Bromination Equipment Operator Name Role Phone Pcp, Unknown Primary Care [...] 7:58 PM EDT Emergency [facility] [address] [place] [address] Discharge Disposition: Left Without Being Seen from [...] 2020 INFLUENZA VACCINE (#1) 2025 COVID-19 VACCINE ( - 2024-2 6 season) 2025 RSV VACCINE (1 - 1-dose [...] [place]AC[place] Care Teams Bromination Equipment Operator Relationship Specialty Start Date End Date Pcp, Unknown PCP - General 04/21/25 Additional Source Comments The information contained in this document represents components of the legal health record. It is not the complete legal health record.[facility]
--- OUTSIDE RECORDS SUMMARY | 2025-08-22 17:49 | XMS_ITS | Encounter Summary ---
Author Organization [facility] Address [address] [facility] [facility] [address] [place] [address] Phone Care Team Providers Care Laundry Housekeeping Aide Name Role Phone Pcp, Unknown Primary Care Provider Unavailabl e Encounter Details Date Type Department Care Team (Late st Contact Info) Description 04/21/2025 Procedure Pass [facility], Ct Scan - [facility] [address] [place] [address] Social History Tobacco Use Types Packs/Day Years [...] 8:31 PM EDT Mile Segura RN * [place] Suicide Severity Rating Scale (Screener/Recent Self-Report) Question [...] on filedocumented in this encounter Care Teams Laundry Housekeeping Aide Relationship Specialty Start Date End Date Pcp, Unknown PCP - General 04/21/25 documented as of this encounter Additional Source Comments The information contained in this document represents components of the legal health record. It is not the complete legal health record.[facility]
[2025-08-23 06:28] LABS: Transferrin 329 mg/dL (188-341)
== END 2025-08-22 14:54 | disposition home or self-care (01) ==
LOC: HO.XRAY 14:53
PROVIDERS: Absent Provider Clinical Nurse Specialist Psychiatric/Mental Health; PCP Physician Assistant Medical; Visit Provider Physician Assistant Medical
DX: M79.641 Pain in right hand (principal); F90.9 Attention-deficit hyperactivity disorder, unspecified type; M79.642 Pain in left hand; E55.9 Vitamin D deficiency, unspecified
CPT/HCPCS: 36415; 73130; 82306; 82728; 83540; 84466; 93005

== ENCOUNTER → 2025-08-22 14:59 | Outpatient (BNV) | payer MEDICARE, SELFPAY | PROVIDERS: Absent Provider Clinical Nurse Specialist Psychiatric/Mental Health; PCP Physician Assistant Medical; Visit Provider Internal Medicine Cardiovascular Disease | DX: I51.7 Cardiomegaly (principal) | CPT/HCPCS: 93010 ==

== ENCOUNTER → 2025-08-22 15:29 | Outpatient (BNV) | payer MEDICARE, SELFPAY | PROVIDERS: Absent Provider Clinical Nurse Specialist Psychiatric/Mental Health; PCP Physician Assistant Medical; Visit Provider Radiology Diagnostic Radiology | DX: M19.041 Primary osteoarthritis, right hand (principal); M19.042 Primary osteoarthritis, left hand | CPT/HCPCS: 73130 ==

== ENCOUNTER 2025-10-09 14:15 | Outpatient (AMB) | payer MEDICARE, SELFPAY ==
--- NOTE | 2025-10-09 14:15 | MHC.PC.OV ---
Vital Signs 10/09/25 14:20 Height 5 ft 2 in Weight 64.524 kg BMI 26.0 Pulse 101 H Pulse Source Pulse Oximeter Temp 97.6 F Temp Source Oral Pulse Oximetry (%) 97 Oxygen Delivery Method Room Air Intake Visit Reasons: follow up Anaesthesiologist Required: No Accompanied by: Self / Same As Patient Allergies naproxen Allergy (Mild, Verified 10/09/25 14:16) Unknown Tobacco use date assessed: 08/07/25 Dental Screening Dental Screen Date: 08/07/25 HPI HPI Comments History of Present Illness Details 70-year-old female with history of ADHD, elevated blood pressures, Dupuytren's contracture, vitamin-D deficiency, psoriasis presents to the office today for follow-up. She was seen in the office about 2 months ago was noted to have elevated blood pressure at 160/90. Elevated blood pressure readings-blood pressure at last visit 160/90. Declines blood pressure today as she feels quite agitated. No history of hypertension. She does have blood pressure cuff at home. Reports agitation surrounding current medical system including insurance issues. She also feels like she has been bounced between several providers and dislocation is not overly convenient for her. ADHD: Adderall 10 mg t.i.d. for which she has been on for over 20 years. She has significant difficulty functioning without the Adderall and is able to sleep well. She was diagnosed with anxiety but states she does not feel anxious overall, just more agitated surrounding the situations as noted. She does report that she is able to relax at home without agitation. Dupuytren's contracture-has required radiation therapy in the past. Seen by my colleague 8 weeks ago and was provided phone number for radiation specialist to reach out to Vitamin-D deficiency-most recent level 22.7 Concerns: As noted above ROS: See HPI EXAM: Constitutional - Awake and Alert, No apparent distress Eyes - PERRL Cardiovascular - S1S2, RRR Respiratory - Normal lung expansion, Normal respiratory effort, No respiratory distress, CTA bilaterally Skin - Warm/Dry Neurological - Alert & oriented x3 Psychological - Appropriate affect , agitated at times [facility] Medical History (Updated 10/09/25 @ 15:33 by SHERYL Dupont) Elevated BP reading w/ no diagnosis of HTN Bilateral hand pain Chronic eczema of foot ADHD Family History (Updated 08/07/25 @ 15:39 by Janine Hancock MA) Mother No problems noted. Father No problems noted. Social History Housing: House Patient Tobacco Use Status: Former Tobacco user e-Cigarette/Vaping Use: Former Use service: No Current occupational status: retired Cognitive needs: No Hearing needs: No Vision needs: Yes (rx glasses) Questionnaire Thrive Questionnaire Date Thrive assessed: 08/07/25 AZRA-7 AMB Questionnaire AZRA-7 Date AZRA - 7 assessed: 08/07/25 Source: Developed by Drs. Darin Banegas, Shira Mitchell, Les Lovelace and colleagues, with an educational grover from [employer]. Physical exam (Primary Care) Vital Signs: Last Vital Signs Temp 97.6 F 10/09/25 14:20 Pulse 101 H 10/09/25 14:20 Pulse Ox 97 10/09/25 14:20 Oxygen Delivery Method Room Air 10/09/25 14:20 BMI result Body Mass Index 26.0 Tobacco/Smoking Status: Tobacco use Status Tobacco use date assessed 08/07/25 10/09/25 14:17 Patient Tobacco Use Status Former Tobacco user 10/09/25 14:17 e-Cigarette/Vaping Use Former Use 10/09/25 14:17 Thrive Assessment: Date of Thrive Assessment Date Thrive assessed 08/07/25 10/09/25 14:17 Coding Level of Care Code Est Pt Level 4 (47571) Diagnoses Elevated BP reading w/ no diagnosis of HTN R03.0 Attention deficit hyperactivity disorder (ADHD), combined type F90.2 Attention deficit-hyperactivity disorder type: combined inattentive-hyperactive Assessment & Plan Assessment & Plan (1) Elevated BP reading w/ no diagnosis of HTN: Comment: BP today was 165/90 Code(s): R03.0 - Elevated blood-pressure reading, without diagnosis of hypertension Category: Medical Plan: Refuses blood pressure in the office today as she feels this will be high. I have requested that she check her blood pressures at home every few days and reach out to the office with blood pressure readings. If elevated, will consider initiation of antihypertensive agent. (2) ADHD: Code(s): F90.9 - Attention-deficit hyperactivity disorder, unspecified type Category: Medical Qualifiers: Attention deficit-hyperactivity disorder type: combined inattentive-hyperactive Qualified Code(s): F90.2 - Attention-deficit hyperactivity disorder, combined type Plan: Reviewed last note from Psychiatry. Patient is stable on Adderall and will continue using 3 times daily as needed Plan Follow-up in the office in 6 months. Labs reviewed
[2025-10-09 14:20] VITALS: PULSE 101; TEMP 36.4; O2SAT 97; BMI 26.0
--- OUTSIDE RECORDS SUMMARY | 2025-10-09 17:38 | XMS_ITS | Clinical Summary ---
Author Organization [facility] Address [address] [place] [id number] Phone Care Team Providers Care Bag Builder Name Role Phone Pcp, Unknown Primary Care Provider Unavailabl e Allergies Active Allergy Reactions Criticality Noted Date Comments Naproxen Hives 04/21/2025 Medications dextroamphetamin e-amphetamine (ADDERALL) 10 mg Tab tablet Take 10 mg by mouth 2 (two) times a day. 04/17/2025 Active cefpodoxime (VANTIN) 200 MG tablet Take 1 tablet (200 mg total) by mouth 2 (two) times a day. 14 tablet 04/22/2025 Active Social History Tobacco Use Types Packs/Day Years [...] on patient's age to complete this topic IPV VACCINES Aged Out No longer eligi ble [...] PPO BLUE REPLACEMENT MEDICARE PPO BLUE REPLACEMENT Member Subscriber Plan / Payer (Ef fective 2020-Present) Name:Irma Gimenezvladimir Haley Relation to Subscriber:Self Name:Imra Gimenezvladimir Haley Payer ID:[id number] (NAIC) Type:Medicare Address: [id number] [place], [place] [facility] MEDICARE PPO BLUE REPLACEMENT [facility] MEDIC[facility] PPO BLUE REPLACEMENT Member Subscriber Plan / Payer (Ef fective 2020-Present) Name:Holly Gimenez Relation to Subscriber:Self Name:Holly Gimenez Payer ID:[id number] (NAIC) Type:Medicare Address: [facility] [id number] [place], [place] [facility] MEDICARE PPO BLUE REPLACEMENT Member Subscriber Plan / Payer (Ef fective 2020-Present) Name:Holly Gimenez Relation to Subscriber:Self Name:Holly Gimenez Payer ID:[id number] (NAIC) Type:Medicare Address: [facility] [id number] [place], [place] [address] [place] [id number] [employer] MEDICARE PPO BLUE REPLACEMENT Care Teams Bag Builder Relationship Specialty Start Date End Date Pcp, Unknown PCP - General 04/21/25 Additional Source Comments The information contained in this document represents components of the legal health record. It is not the complete legal health record.[facility]
--- OUTSIDE RECORDS SUMMARY | 2025-10-09 17:38 | XMS_ITS | Encounter Summary ---
Author Organization [facility] Address [address] [place] [phone] Phone Care Team Providers Care Edge Stainer Machine Name Role Phone Pcp, Unknown Primary Care Provider Unavailabl e Encounter Details Date Type Department Care Team (Late st Contact Info) Description 04/21/2025 Procedure Pass [facility] [place], [facility] Scan - [facility] [address] [place] [address] Social History Tobacco Use Types Packs/Day Years [...] 8:31 PM EDT Mile Segura RN * [place] Suicide Severity Rating Scale (Screener/Recent Self-Report) Question [...] on filedocumented in this encounter Care Teams Edge Stainer Machine Relationship Specialty Start Date End Date Pcp, Unknown PCP - General 04/21/25 documented as of this encounter Additional Source Comments The information contained in this document represents components of the legal health record. It is not the complete legal health record.[facility]
== END 2025-10-09 14:44 | disposition home or self-care (01) ==
LOC: HO.HMCHD 14:16
PROVIDERS: PCP Physician Assistant Medical; Visit Provider Physician Assistant
DX: R03.0 Elevated blood-pressure reading, without diagnosis of hypertension (principal); F90.2 Attention-deficit hyperactivity disorder, combined type

== ENCOUNTER → 2025-10-09 14:15 | Outpatient (BNVA) | payer MEDICARE, SELFPAY | PROVIDERS: PCP Physician Assistant Medical; Visit Provider Physician Assistant | DX: R03.0 Elevated blood-pressure reading, without diagnosis of hypertension (principal); F90.2 Attention-deficit hyperactivity disorder, combined type; E55.9 Vitamin D deficiency, unspecified; M72.0 Palmar fascial fibromatosis [Dupuytren]; Z79.899 Other long term (current) drug therapy | CPT/HCPCS: 99212 ==